=== PATIENT | male | born 1975 ===

== ENCOUNTER 2021-11-17 11:46 | Outpatient (CLI) | payer OTHER | END 2021-11-17 11:50 | disposition home or self-care (01) | LOC: RAD 11:46 | PROVIDERS: ATTEND Orthopaedic Surgery | DX: M25.572 Pain in left ankle and joints of left foot (principal); M25.561 Pain in right knee ==

== ENCOUNTER 2022-04-29 13:08 | Outpatient (CLI) | payer OTHER | END 2022-04-29 13:24 | disposition home or self-care (01) | LOC: RAD 13:08 | PROVIDERS: ATTEND General Practice | DX: S52.021A Displaced fracture of olecranon process without intraarticular extension of right ulna, initial encounter for closed fracture (principal); K42.9 Umbilical hernia without obstruction or gangrene ==

== ENCOUNTER 2024-03-29 10:53 | Outpatient (CLI) | payer OTHER | END 2024-03-29 10:55 | disposition home or self-care (01) | LOC: RAD 10:53 | PROVIDERS: ATTEND Orthopaedic Surgery | DX: M25.512 Pain in left shoulder (principal) ==

== ENCOUNTER 2024-05-02 11:32 | Outpatient (CLI) | payer OTHER | END 2024-05-02 11:42 | disposition home or self-care (01) | LOC: SONOGRAMA 11:32 | PROVIDERS: ATTEND Orthopaedic Surgery | DX: M79.671 Pain in right foot (principal); M67.471 Ganglion, right ankle and foot; M25.512 Pain in left shoulder ==

== ENCOUNTER 2024-05-15 11:44 | Outpatient (CLI) | payer OTHER | END 2024-05-15 11:50 | disposition home or self-care (01) | LOC: RAD 11:44 | PROVIDERS: ATTEND Orthopaedic Surgery | DX: M79.671 Pain in right foot (principal); Z76.89 Persons encountering health services in other specified circumstances ==

== ENCOUNTER → 2024-05-15 12:28 | Outpatient (CLI) | payer OTHER ==
[2024-05-15 13:13] LABS: HEMATOCRIT 41.9 % (39.0-48.0); HEMOGLOBIN 13.9 g/dL (13-16.00); MEAN CELL VOLUME 92.1 fL (80.0-100.00); MEAN CORPUSCULAR HEMOGLOBIN 30.5 pg (27.00-32.0); MEAN CORPUSCULAR HGB CONC 33.1 g/dl (32.0-36.0); PLATELET COUNT 194 K/uL (150-450); RED BLOOD COUNT 4.55 M/uL (4.00-6.00); RED CELL DISTRIBUTION WIDTH 13.8 % (11.5-14.5)
[2024-05-15 13:35] LABS: INR 1.02; PARTIAL THROMBOPLASTIN TIME 25.1 SECONDS (22.0-34.0); PROTHROMBIN TIME 11.1 SECONDS (9.0-11.5)
[2024-05-15 13:53] LABS: PH,URINE 5.5 (5.0-8.0); URINE APPEARANCE Clear; URINE BILIRRUBIN Negative (NEGATIVE); URINE BLOOD Negative; URINE COLOR Yellow; URINE GLUCOSE Negative (NEGATIVE); URINE KETONE Trace (NEGATIVE); URINE LEUKOCYTE Negative; URINE NITRATE Negative; URINE PROTEIN Negative (NEGATIVE)
[2024-05-15 13:57] LABS: URINE RBC 9.5 uL (0.0-20.8); URINE WBC 1.8 uL (0.0-23.2)
[2024-05-15 14:02] LABS: COL EPI 97 SECONDS (82-175)
[2024-05-15 14:07] LABS: URINE BACTERIA 0 uL (0.0-1933); URINE EPITHELIAL CELLS 0.3 uL (0.0-38.8)
[2024-05-15 14:10] LABS: ALBUMIN 4.1 gm/dL (3.4-5.0); BILIRUBIN TOTAL 0.67 mg/dL (0.3-1.2); CALCIUM 9.6 mg/dL (8.5-10.1); CREATININE SERUM 0.93 mg/dL (0.70-1.30); POTASSIUM 4.69 mEq/L (3.5-5.1); TOTAL PROTEIN 7.1 gm/dL (6.4-8.2)
== END | disposition home or self-care (01) ==
LOC: LAB 12:28
PROVIDERS: ATTEND Orthopaedic Surgery
DX: D64.9 Anemia, unspecified (principal); E88.89 Other specified metabolic disorders; D68.8 Other specified coagulation defects; N39.0 Urinary tract infection, site not specified; Z22.322 Carrier or suspected carrier of Methicillin resistant Staphylococcus aureus; E11.9 Type 2 diabetes mellitus without complications